=== PATIENT | male | born 1970 | race Caucasian/White ===

== ENCOUNTER 2016-06-04 14:18 | Inpatient (IN) | payer BC ==
[~2016-06-04] VITALS: Ht 177.8 cm; Wt 144.3 kg
[2016-06-04 15:46] LABS: HEMATOCRIT 40.1 % (38.0-50.0); MCHC 34.4 G/DL (30.0-36.0); MCV 84.2 FL (86-99); MEAN PLAT.VOLUME 10.4 uM^3 (9.0-12.4); PLATELET COUNT 392 K/uL (156-360); RBC DIS.WIDTH-SD 36.5 % (39-53); RED BLOOD COUNT 4.76 M/uL (4.00-5.50); WHITE BLOOD COUNT 19.1 K/uL (4.1-10.2)
[2016-06-04 15:58] LABS: CHLORIDE 97 mEq/L (99-109); POTASSIUM 3.3 mEq/L (3.7-5.4); SODIUM 134 mEq/L (136-147)
[2016-06-04 16:00] LABS: GLUCOSE 311 mg/dL (70-99)
[2016-06-04 16:02] LABS: ANION GAP 13 MEQ/L (2-14); TOTAL BILIRUBIN 0.5 mg/dL (0.0-1.0)
[2016-06-04 16:04] LABS: ALKALINE PHOSPHATASE 98 IU/L (3-129); GFR ESTIMATE (CALCULATED) > 59 mL/min/
[2016-06-04 16:05] LABS: UREA NITROGEN (BUN) 9 mg/dL (9-23)
[2016-06-04] MEDS ORDERED: ZESTRIL40 MG PO (17:57)
[2016-06-04] MEDS ORDERED: NORVASC5 MG PO (17:57)
[2016-06-04] MEDS ORDERED: TOPROL XL100 MG PO (17:58)
[2016-06-04] MEDS ORDERED: PROZAC40 MG PO (17:58)
[2016-06-04 22:03] VITALS: BP 189/89
[2016-06-05 00:23] LABS: ADD MIUA? YES; BILIRUBIN NEGATIVE; BLOOD LARGE; COLOR YELLOW ((YELLOW)); GLUCOSE (STRIP) >=500; KETONES NEGATIVE; LEUKOCYTES NEGATIVE; NITRITE NEGATIVE; PROTEIN (STRIP) 100; SPECIFIC GRAVITY 1.015 (1.000-1.030); UROBILINOGEN 0.2 MG/DL (0.2-1.0)
[2016-06-05 00:43] LABS: BACTERIA NONE SEEN /HPF; EPITHELIAL CELLS RARE /HPF; HYALINE CASTS 0-5 /LPF; MUCUS NONE SEEN /LPF; RED BLOOD CELLS TNTC /HPF (0-5); UCUL ADDED? NO
[2016-06-05 03:46] VITALS: BP 182/84
[2016-06-05 06:23] LABS: BASOPHIL COUNT 0.1 K/uL (0-0.1); EOSINOPHIL (%) 1.9 % (0-5); EOSINOPHIL COUNT 0.4 K/uL (0-0.3); HEMATOCRIT 38.1 % (38.0-50.0); IMMATURE GRANULOCYTE (%) 1.5 % (0.0-0.7); IMMATURE GRANULOCYTE COUNT 0.3 K/uL; INSTRUMENT ABS NEUTROPHIL CT 14.9 K/uL; MCH 28.2 PG (29.0-34.0); MCHC 33.3 G/DL (30.0-36.0); MCV 84.7 FL (86-99); MEAN PLAT.VOLUME 10.3 uM^3 (9.0-12.4); MONOCYTE (%) 9.9 % (3-12); MONOCYTE COUNT 1.8 K/uL (0-0.8); NEUTROPHIL (%) 81.1 % (45-76); NEUTROPHIL COUNT 14.9 K/uL (1.8-6.4); PLATELET COUNT 319 K/uL (156-360); RBC DIS.WIDTH-CV 12.2 % (11.8-14.6); RBC DIS.WIDTH-SD 37.4 % (39-53); WHITE BLOOD COUNT 18.3 K/uL (4.1-10.2)
[2016-06-05 06:48] LABS: ANION GAP 12 MEQ/L (2-14); CHLORIDE 99 MEQ/L (99-109); GFR ESTIMATE (CALCULATED) > 59 mL/min/; GLUCOSE 251 mg/dL (70-99); POTASSIUM 3.7 MEQ/L (3.7-5.4); SAMPLE HEMOLYSIS CHECK 0; SAMPLE ICTERIC CHECK 0; SAMPLE LIPEMIA CHECK 0; SODIUM 136 MEQ/L (136-147); UREA NITROGEN (BUN) 6 mg/dL (9-23)
[2016-06-05 07:48] VITALS: BP 154/82
[2016-06-05 12:25] VITALS: BP 164/94
[2016-06-05 16:04] VITALS: BP 152/80
[2016-06-05 17:12] LABS: POINT-OF-CARE METER ID UU14174225
[2016-06-05 17:24] LABS: Estimated Average Glucose 280 mg/dL (70-123); HEMOGLOBIN A1c (GLYCOHEMOGLOB) 11.4 % HGB (Below 5.7)
[2016-06-05 19:48] VITALS: BP 155/78
[2016-06-06] VITALS (7 sets, daily range): BP systolic 138–171; BP diastolic 72–92
[2016-06-06 09:31] LABS: HEMATOCRIT 40.7 % (38.0-50.0); MCH 28.1 PG (29.0-34.0); MCHC 32.9 G/DL (30.0-36.0); MCV 85.3 FL (86-99); MEAN PLAT.VOLUME 10.1 uM^3 (9.0-12.4); PLATELET COUNT 377 K/uL (156-360); RBC DIS.WIDTH-CV 12.2 % (11.8-14.6); RBC DIS.WIDTH-SD 38.1 % (39-53); RED BLOOD COUNT 4.77 M/uL (4.00-5.50); WHITE BLOOD COUNT 18.7 K/uL (4.1-10.2)
[2016-06-06 09:48] LABS: ANION GAP 11 MEQ/L (2-14); CHLORIDE 98 MEQ/L (99-109); GFR ESTIMATE (CALCULATED) > 59 mL/min/; GLUCOSE 225 mg/dL (70-99); POTASSIUM 3.7 MEQ/L (3.7-5.4); SAMPLE HEMOLYSIS CHECK 0; SAMPLE ICTERIC CHECK 0; SAMPLE LIPEMIA CHECK 0; SODIUM 137 MEQ/L (136-147); UREA NITROGEN (BUN) 7 mg/dL (9-23)
[2016-06-06 21:25] LABS: POINT-OF-CARE METER ID UU14188625
[2016-06-07 04:00] VITALS: BP 148/82
[2016-06-07 06:00] VITALS: BP 145/80
[2016-06-07 07:06] LABS: HEMATOCRIT 39.7 % (38.0-50.0); MCH 28.4 PG (29.0-34.0); MCV 85.9 FL (86-99); MEAN PLAT.VOLUME 10.2 uM^3 (9.0-12.4); PLATELET COUNT 365 K/uL (156-360); RBC DIS.WIDTH-CV 12.2 % (11.8-14.6); RBC DIS.WIDTH-SD 38.4 % (39-53); RED BLOOD COUNT 4.62 M/uL (4.00-5.50); WHITE BLOOD COUNT 13.7 K/uL (4.1-10.2)
[2016-06-07 09:06] LABS: POINT-OF-CARE METER ID UU13113675
[2016-06-07 11:09] VITALS: BP 153/81
[2016-06-07 16:29] VITALS: BP 140/80
[2016-06-07 20:15] VITALS: BP 130/70
[2016-06-08 01:15] VITALS: BP 132/84
[2016-06-08 04:03] VITALS: BP 140/78
[2016-06-08 08:36] VITALS: BP 136/78
[2016-06-08 08:42] LABS: POINT-OF-CARE METER ID UU14188625
[2016-06-08 12:22] LABS: POINT-OF-CARE METER ID UU14188625
[2016-06-08 12:43] VITALS: BP 131/61
[2016-06-08] MEDS ORDERED: LINEZOLID600 MG PO (12:54)
[2016-06-08] MEDS ORDERED: LEVEMIR100 UNIT/2 SC (13:20)
== END 2016-06-08 14:30 | disposition home or self-care (01) | DRG 603 ==
LOC: EME 14:18 → EDOF 19:53 → 5SOUTH 19:53
PROVIDERS: Internal Medicine; Physician Assistant; Physician Assistant Medical
PROC: 0X940ZX Drainage of Right Axilla, Open Approach, Diagnostic (ICD-10-PCS; principal; 2016-06-07)
DX: L03.111 Cellulitis of right axilla (principal); E11.9 Type 2 diabetes mellitus without complications; Z68.42 Body mass index [BMI] 45.0-49.9, adult; I10 Essential (primary) hypertension; G47.33 Obstructive sleep apnea (adult) (pediatric); E66.01 Morbid (severe) obesity due to excess calories; Z68.41 Body mass index [BMI] 40.0-44.9, adult; D72.829 Elevated white blood cell count, unspecified
CPT/HCPCS: 76882; 80048; 80053; 80202; 81003; 82948; 83036; 83605; 85025; 85027; 87040; 87070; 87075; 87077; 87147; 87186; 87205; 94660; 94799; 99281; 99285; J0330; J0690; J0696; J1170; J1650; J1815; J1885; J2405; J3010; J3370; J7030; J7050; S0020

== ENCOUNTER → 2016-06-25 | Outpatient (CLI) | payer BC ==
[~2016-06-25] MED LIST: LEVEMIR100 UNIT/2 SC; LINEZOLID600 MG PO; NORVASC5 MG PO; PROZAC40 MG PO; TOPROL XL100 MG PO; ZESTRIL40 MG PO
== END | disposition home or self-care (01) ==
LOC: AMB 11:23
DX: Z09 Encounter for follow-up examination after completed treatment for conditions other than malignant neoplasm (principal); Z86.14 Personal history of Methicillin resistant Staphylococcus aureus infection
CPT/HCPCS: 99211

== ENCOUNTER 2016-07-21 16:29 | Emergency (ER) | payer BC ==
[~2016-07-21] VITALS: Ht 177.8 cm; Wt 139.4 kg
[2016-07-21 18:09] LABS: HEMATOCRIT 40.3 % (38.0-50.0); MCH 28.1 PG (29.0-34.0); MCV 85.2 FL (86-99); MEAN PLAT.VOLUME 9.7 uM^3 (9.0-12.4); RBC DIS.WIDTH-CV 13.4 % (11.8-14.6); RBC DIS.WIDTH-SD 42.4 % (39-53); RED BLOOD COUNT 4.73 M/uL (4.00-5.50)
[2016-07-21 18:11] LABS: PLATELET COUNT 345 K/uL (156-360)
[2016-07-21 18:17] LABS: CHLORIDE 101 mEq/L (99-109); POTASSIUM 3.1 mEq/L (3.7-5.4); SODIUM 139 mEq/L (136-147)
[2016-07-21 18:18] LABS: GLUCOSE 205 mg/dL (70-99)
[2016-07-21 18:20] LABS: ANION GAP 10 MEQ/L (2-14)
[2016-07-21 18:22] LABS: GFR ESTIMATE (CALCULATED) > 59 mL/min/
[2016-07-21 18:23] LABS: UREA NITROGEN (BUN) 12 mg/dL (9-23)
[2016-07-21] MEDS ORDERED: BACTRIM,SEPT1 TABLET PO (21:35)
[2016-07-21 23:18] VITALS: BP 180/84
== END 2016-07-21 23:21 | disposition home or self-care (01) ==
LOC: EME 16:29
PROVIDERS: Physician Assistant Medical
DX: L03.314 Cellulitis of groin (principal); E87.6 Hypokalemia; Z86.14 Personal history of Methicillin resistant Staphylococcus aureus infection; E11.9 Type 2 diabetes mellitus without complications; I10 Essential (primary) hypertension
CPT/HCPCS: 72193; 80048; 83605; 85027; 87040; 99281; 99284; J7030; S0039